=== PATIENT | female | born 1945 | race Caucasian/White ===

== ENCOUNTER 2016-12-08 10:15 | Emergency (ER) | payer MEDICARE ==
[2016-12-08 10:25] VITALS: BP 140/73
--- NOTE | 2016-12-08 10:25 | UC ---
Lower Extremity/Ankle HPI - HPI Summary HPI Summary: 71 year old female presents with complains of right posterior calcaneal pain with no trauma - History of Current Complaint Stated Complaint: RIGHT FOOT PAIN Time Seen by Provider: 12/08/16 10:23 - Allergies/Home Medications Allergies/Adverse Reactions: Allergies Allergy/AdvReac Type Severity Reaction Status Date / Time No Known Allergies Allergy Verified 11/04/13 07:29 Home Medications: Home Medications Exemestane [Aromasin] 25 mg PO DAILY 12/08/16 [History Confirmed 12/08/16] Pantoprazole Sodium 20 mg PO DAILY 12/08/16 [History Confirmed 12/08/16] PMH/Surg Hx/FS Hx/Imm Hx - Surgical History Surgical History: Yes Surgery Procedure, Year, and Place: R mastectomy, hysterectomy - Social History Alcohol Use: None Substance Use Type: None Review of Systems Constitutional: Negative Skin: Negative Eyes: Negative ENT: Negative Respiratory: Negative Cardiovascular: Negative Gastrointestinal: Negative Genitourinary: Negative Motor: Negative Neurovascular: Negative Musculoskeletal: Other: - right calcaneal pain Neurological: Negative Psychological: Negative All Other Systems Reviewed And Are Negative: Yes Physical Exam Triage Information Reviewed: Yes Eye Exam: Normal ENT Exam: Normal Dental Exam: Normal Neck exam: Normal Neck: Positive: 1 Respiratory Exam: Normal Cardiovascular Exam: Normal Abdominal Exam: Normal Musculoskeletal Exam: Normal Musculoskeletal: Positive: Other: - right calcaneal pain Neurological Exam: Normal Psychological Exam: Normal Skin Exam: Normal Lower Extremity Course/Dx - Differential Dx/Diagnosis Provider Diagnoses: right retrocalcaneal bursitis Discharge - Discharge Plan Condition: Stable Disposition: HOME Prescriptions: Methylprednisolone [Medrol Dosepak 4 MG*] 4 mg PO .SEE ROXIE INSTRUCTION #1 packet Patient Education Materials: Foot Sprain (ED), Swollen Joint (ED) Referrals: Александр Richardson MD [Medical Doctor] - Davidson Pimentel MD [Primary Care Provider] - If Needed
--- NOTE | 2016-12-08 10:54 | RAD ---
HISTORY: Right foot redness and swelling COMPARISONS: None VIEWS: 3, Frontal, lateral, and oblique views of the right foot FINDINGS: BONE DENSITY: Normal. BONES: There is no displaced fracture. JOINTS: There is osteoarthritis of the first MTP joint ALIGNMENT: There is no dislocation. SOFT TISSUES: Unremarkable. OTHER FINDINGS: None. IMPRESSION: FIRST MTP OSTEOARTHRITIS. NO ACUTE OSSEOUS INJURY. IF SYMPTOMS PERSIST, RECOMMEND REPEAT IMAGING.
== END 2016-12-08 11:05 | disposition home or self-care (01) ==
LOC: UCCORT 10:15
DX: M77.51 Other enthesopathy of right foot and ankle (principal)
CPT/HCPCS: 99202; G0463

== ENCOUNTER 2018-12-11 13:42 | Emergency (ER) | payer MEDICARE ==
[2018-12-11 14:17] VITALS: BP 155/76
--- NOTE | 2018-12-11 14:27 | UC ---
Eye Complaint HPI - HPI Summary HPI Summary: 73-year-old female who had applied some hydrocortisone cream to her hands and then she touched her eye. She complains of some redness to the eye but no itching, no burning she did wash it out at home and she has no complaints other than it is red today. - History of Current Complaint Chief Complaint: UCEye Stated Complaint: RT EYE COMPLAINT Time Seen by Provider: 12/11/18 14:07 Hx Obtained From: Patient ?: No Onset/Duration: Sudden Onset Timing: Constant Severity Initially: Mild Severity Currently: Mild Pain Intensity: 0 Location of Injury: Other - No injury Aggravating Factor(s): Nothing Alleviating Factor(s): Nothing Associated Signs And Symptoms: Positive: Negative - Allergies/Home Medications Allergies/Adverse Reactions: Allergies Allergy/AdvReac Type Severity Reaction Status Date / Time No Known Allergies Allergy Verified 12/11/18 14:17 Home Medications: Home Medications Ascorbic Acid TAB* [Vitamin C TAB*] 500 mg PO DAILY 12/11/18 [History Confirmed 12/11/18] Calcium Carbonate/Vitamin D3 [Calcium 600 + Vit D Tablet] 1 each PO DAILY [History Confirmed 12/11/18] Pantoprazole TAB * [Protonix TAB*] 40 mg PO DAILY 12/11/18 [History Confirmed ] PMH/Surg Hx/FS Hx/Imm Hx Previously Healthy: Yes Cancer History: Breast Cancer - Surgical History Surgical History: Yes Surgery Procedure, Year, and Place: R mastectomy, hysterectomy - Family History Known Family History: Positive: Non-Contributory - Social History Alcohol Use: None Substance Use Type: None Smoking Status (MU): Never Smoked Tobacco Review of Systems All Other Systems Reviewed And Are Negative: Yes Eyes: Positive: Eye Redness Is Patient Immunocompromised?: No Physical Exam Triage Information Reviewed: Yes Appearance: Well-Appearing, No Pain Distress, Well-Nourished Vital Signs: Initial Vital Signs Temp 99 F 12/11/18 14:12 Pulse 85 12/11/18 14:12 Resp 16 12/11/18 14:12 BP 155/76 12/11/18 14:12 Pulse Ox 100 12/11/18 14:12 Vital Signs Reviewed: Yes Eyes: Positive: Other: - PERRLA, EOMI, the patient has a very small subconjunctival hemorrhage inferiorly, globe is intact. No drainage. Musculoskeletal Exam: Normal Neurological Exam: Normal Psychological Exam: Normal Skin Exam: Normal Eye Complaint Course/Dx - Course Course Of Treatment: Patient is comfortable here. 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 Patient is agreeable to this plan of action. - Differential Dx/Diagnosis Provider Diagnosis: Subconjunctival hemorrhage of right eye Discharge - Sign-Out/Discharge Documenting (check all that apply): Patient Departure All imaging exams completed and their final reports reviewed: No Studies - Discharge Plan Condition: Fair Disposition: HOME Patient Education Materials: Subconjunctival Hemorrhage (ED) Referrals: Davidson Pimentel MD [Primary Care Provider] - Additional Instructions: Follow up with your eye doctor on Thursday for a recheck. - Billing Disposition and Condition Condition: FAIR Disposition: Home
== END 2018-12-11 14:35 | disposition home or self-care (01) ==
LOC: UCCORT 13:42
DX: H11.31 Conjunctival hemorrhage, right eye (principal); Z85.3 Personal history of malignant neoplasm of breast
CPT/HCPCS: 99212; G0463